=== PATIENT | female | born 1955 | race Caucasian/White ===

== ENCOUNTER → 2016-07-07 | Outpatient (CLI) | payer MEDICARE ==
[~2016-07-07] MED LIST: ASPIRIN EC81 MG PO; CEFUROXIME AXE500 MG; CIPROFLOXACIN500 MG PO; FLAGYL 500MG.500 MG PO; LEVAQUIN250 MG PO; LORTAB 500 MG-11 TAB PO; MORPHINE SULFAT30 M1; MS CONTIN30 MG PO; PERCOCET 10 MG1 EACH PO; PHENERGAN 25MG.25 M1 PO; PREDNISONE 20MG20 MG; PREDNISONE 20MG20 MG PO; PRISTIQ50 MG; PRISTIQ50 MG PO; SINGULAIR 10 MG10 MG PO; ZOFRAN ODT8 MG PO
[2016-07-07 13:06] LABS: URINE BLOOD 3+ (NEG)
[2016-07-07 13:07] LABS: URINE BILIRUBIN - DIPSTICK NEGATIVE (NEG)
[2016-07-07 13:10] LABS: HEMOGLOBIN 13.4 g/dL (12.2-16.2); LYMPH % 33.8 % (10-50.0)
[2016-07-07 14:01] LABS: BUN 10 mg/dL (7-18)
[2016-07-07 14:05] LABS: GFR (ESTIMATED) 85 ML/MIN (59-)
== END ==
LOC: LAB 12:35
PROVIDERS: Nurse Practitioner Family
DX: R31.9 Hematuria, unspecified (principal); N39.0 Urinary tract infection, site not specified

== ENCOUNTER → 2016-08-11 | Outpatient (CLI) | payer MEDICARE ==
[2016-08-11 12:18] LABS: BUN 12 mg/dL (7-18); GFR (ESTIMATED) 102 ML/MIN (59-)
== END ==
LOC: LAB 09:12
PROVIDERS: Urology
DX: R31.9 Hematuria, unspecified (principal)

== ENCOUNTER → 2016-09-12 | Outpatient (CLI) | payer MEDICARE ==
[2016-09-12 09:53] LABS: LYMPH % 30.2 % (10-50.0)
[2016-09-12 10:31] LABS: AMPHETAMINES/METAMPHETAMINES NEGATIVE ng/mL (<1000)
[2016-09-12 10:39] LABS: URINE BILIRUBIN - DIPSTICK NEGATIVE (NEG); URINE BLOOD NEGATIVE (NEG)
[2016-09-12 10:47] LABS: BUN 20 mg/dL (7-18)
[2016-09-12 10:49] LABS: GFR (ESTIMATED) 64 ML/MIN (59-)
== END ==
LOC: LAB 09:37
PROVIDERS: Internal Medicine Adolescent Medicine
DX: C64.1 Malignant neoplasm of right kidney, except renal pelvis (principal); M54.5 Low back pain; R82.90 Unspecified abnormal findings in urine